=== PATIENT | female | born 1970 | race African-American/Black ===

== ENCOUNTER 2017-11-29 08:16 | Emergency (ER) | payer OTHER ==
[~2017-11-29] VITALS: Ht 165.1 cm; Wt 100.0 kg
[~2017-11-29 08:16] MED LIST: SPIRONOLACTONE; TRIAMTERENE/HCTZ
[2017-11-29 10:20] VITALS: BP 143/82
== END 2017-11-29 11:18 | disposition left against medical advice (07) ==
LOC: ER 08:16
DX: F41.9 Anxiety disorder, unspecified (principal); Z53.21 Procedure and treatment not carried out due to patient leaving prior to being seen by health care provider
CPT/HCPCS: 99281